=== PATIENT | female | born 1985 | race Caucasian/White ===

== ENCOUNTER 2017-06-05 13:14 | Emergency (ER) | payer SELFPAY | END 2017-06-05 14:14 | disposition home or self-care (01) | LOC: ERS 13:14 | DX: M62.838 Other muscle spasm (principal); F17.210 Nicotine dependence, cigarettes, uncomplicated | CPT/HCPCS: 99283 ==

== ENCOUNTER 2018-05-22 06:58 | Emergency (ER) | payer OTHER, SELFPAY ==
--- NOTE | 2018-05-22 08:30 | CT ---
CT FACE WITHOUT CONTRAST: HISTORY: The patient complains of jaw locking that started 2 days ago. The patient had bitten an apple and first noted the symptoms. COMPARISON: None. TECHNIQUE: Face CT is performed without contrast. Reformatted images are submitted for interpretation. FINDINGS: The visualized brain parenchyma and orbits are unremarkable. Adequate aeration of the visualized paranasal sinuses and mastoid air cells. Aerodigestive tract is patent. No mucosal abnormality. No obvious masses in the oral cavity. Midline fatty raphae of the tongue is preserved. There is nonspecific mild fullness of the adenoid tonsils. Campbell tonsils ar e unremarkable. Epiglottis has a normal caliber. Preepiglottic fat is preserved. Visualized parotid and submandibular glands as well as the sternocleidomastoid muscles are unremarkab le. Visualized cervical spine is unremarkable. Cervical spine vertebral height is maintained. Maxilla and mandible are intact. Both mandibular condyles are appropriately located. There is some mild irregularity involving the right mandibular condyle. Irregularity may be on the basis of degene rative change. TMJ MRI may be beneficial. There are small lucent foci in the right mandibular condy le. Coronal reformatted images demonstrate patent bilateral osteomeatal complexes. The septum is in midl ine and intact. 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 If there is concern for deg enerative change, nonemergent temporomandibular joint MRI can be performed. POS: [facility]
== END 2018-05-22 08:40 | disposition home or self-care (01) ==
LOC: ERS 06:58
DX: M26.622 Arthralgia of left temporomandibular joint (principal); F17.210 Nicotine dependence, cigarettes, uncomplicated
CPT/HCPCS: 70486

== ENCOUNTER 2022-09-18 14:38 | Emergency (ER) | payer OTHER ==
[2022-09-18] MEDS ORDERED: HYDROcodone/Acetaminophen 5/325 mg Tablet ONE (17:42)
== END 2022-09-18 18:04 | disposition home or self-care (01) ==
LOC: ERS 14:38
DX: H66.002 Acute suppurative otitis media without spontaneous rupture of ear drum, left ear (principal)
CPT/HCPCS: 99282